=== PATIENT | female | born 1965 | race Hispanic/Latino ===

== ENCOUNTER 2021-03-26 12:20 | Emergency (ER) | payer BC, OTHER ==
[~2021-03-26] VITALS: Ht 165.1 cm; Wt 79.4 kg
[2021-03-26] MEDS ORDERED: HYDROCODONE/APAP 7.5MG-325MG 1 EA TAB PO ONE (15:00)
[2021-03-26] MEDS ORDERED: KETOROLAC TROMETHAMINE 60 MG/2 ML VIAL IM ONE (15:00)
[2021-03-26] MEDS ORDERED: CEFTRIAXONE 1 GM VIAL IM ONE (15:30)
== END 2021-03-26 15:27 | disposition home or self-care (01) ==
LOC: ER 12:30
DX: S82.001A Unspecified fracture of right patella, initial encounter for closed fracture (principal); W01.0XXA Fall on same level from slipping, tripping and stumbling without subsequent striking against object, initial encounter; Y93.01 Activity, walking, marching and hiking; N18.1 Chronic kidney disease, stage 1
CPT/HCPCS: 73552; 73562; 99284; J1885